=== PATIENT | female | born 1970 | race Two or more races ===

== ENCOUNTER 2019-11-19 22:04 | Emergency (ER) | payer MEDICAID ==
[~2019-11-19] VITALS: Ht 157.5 cm; Wt 76.2 kg
[2019-11-19 23:22] LABS: Basophils # (auto) 0.1 uL; Basophils % (auto) 0.9 % (0.0-2.0); Eosinophils # (auto) 0.1 uL; Eosinophils % (auto) 0.6 % (0.0-7.0); Hematocrit 46.4 % (36.0-46.0); Hemoglobin 15.5 g/dL (12.2-16.2); Lymphocytes # (auto) 3.4 uL; Lymphocytes % (auto) 35.2 % (10.0-50.0); Mean Corpuscular Hgb Conc. 33.5 g/dL (32.0-36.0); Mean Corpuscular Volume 92.7 fL (80.0-100.0); Monocytes # (auto) 0.6 uL; Monocytes % (auto) 6.5 % (0.0-12.0); Neutrophils # (auto) 5.5 uL; Neutrophils % (auto) 56.8 % (37.0-80.0); Nucleated Red Blood Cells % 0.1 %; Platelet Count (auto) 236 10^3/uL (140-450); Red Blood Cells 5.01 10^6/uL (4.0-5.20); Red Cell Distribution Width 13.9 % (11.8-14.3); White Blood Cell 9.7 10^3/uL (4.4-10.8)
[2019-11-19 23:40] LABS: Alanine Aminotransferase 38 U/L (13-56); Albumin 4.1 g/dL (3.4-5.0); Anion Gap 10 (5-15); Aspartate Aminotransferase 16 U/L (15-37); BUN/Creatinine Ratio 16.2; Blood Urea Nitrogen 12 mg/dL (7-18); Calcium 9.4 mg/dL (8.5-10.1); Carbon Dioxide 21 mmol/L (21-32); Chloride 109 mmol/L (98-107); GFR African American 107 mL/min; GFR Non-African American 89 mL/min; Glucose 106 mg/dL (74-106); Magnesium 2.4 mg/dL (1.6-2.6); Potassium 3.7 mmol/L (3.5-5.1); Sodium 140 mmol/L (136-145)
[2019-11-19 23:51] LABS: Alkaline Phosphatase 88 U/L (45-117); Bilirubin, Total 1.7 mg/dL (0.2-1.0); Total Protein 8.4 g/dL (6.4-8.2)
[2019-11-20 03:46] VITALS: BP 139/67
== END 2019-11-20 04:01 | disposition home or self-care (01) ==
LOC: ER 22:09
DX: F41.9 Anxiety disorder, unspecified (principal); M54.2 Cervicalgia; E11.9 Type 2 diabetes mellitus without complications; I10 Essential (primary) hypertension
CPT/HCPCS: 36415; 71045; 80053; 83735; 83880; 84484; 85025; 93005